=== PATIENT | female | born 1985 | race Caucasian/White ===

== ENCOUNTER 2022-05-24 06:56 | Inpatient (IN) ==
[2022-05-24] MEDS ORDERED: miSOPROStol 100 mcg TAB PO ONE (09:14)
[2022-05-24] MEDS ORDERED: Lactated Ringers 1000 ml BAG 1,000 ML IV ONE (09:14)
[2022-05-24] MEDS ORDERED: Buffered Lidocaine 1% SYRIN 1 ml INTRADERM ONE (09:14)
[2022-05-24] MEDS ORDERED: Lactated Ringers 1000 ml BAG 1,000 ML IV SCH ×2 (10:00→14:00)
[2022-05-24 11:35] LABS: Urine Benzodiazepine Screen None Detected (None Detect); Urine Cannabinoids Screen None Detected (None Detect); Urine Opiates Screen None Detected (None Detect)
[2022-05-24] MEDS ORDERED: Measles, Mumps,Rubella VACC 0.5 ML/VIAL SUBCUT ONE (13:38)
[2022-05-24] MEDS ORDERED: Witch Hazel PAD JAR TOPICAL PRN (13:38)
[2022-05-24] MEDS ORDERED: Dibucaine 1% OINT 28.35 GM TUBE PR PRN (13:38)
[2022-05-24] MEDS ORDERED: Glycerin ADULT 2.4 gm SUPP PR PRN (13:38)
[2022-05-24] MEDS ORDERED: RHO D Immune Globulin (HUMAN) 300 MCG = 1,500 I.U. INJ IM PRN (13:38)
[2022-05-25 06:03] LABS: ABS Eosinophils 0.3 10^3/ul (0-0.6); ABS Lymphocytes 2.9 10^3/ul (1.0-4.8); ABS Monocytes 1.3 10^3/ul (0-0.8); ABS Neutrophils 12.5 10^3/ul (1.5-7.7); Eosinophil % 1.9 %; Hematocrit 34 % (35-47); Hemoglobin 11.4 g/dL (12.0-16.0); Lymphocyte % 17.2 %; Mean Corpuscular HGB Conc 34 g/dL (31-36); Mean Corpuscular Hemoglobin 30 pg (27-31); Mean Corpuscular Volume 89 fL (80-97); Mean Platelet Volume 8.1 fL (7.4-10.4); Nucleated Red Blood Cells % 0.1; Platelet Count 226 10^3/uL (150-450); Red Blood Count 3.78 10^6 /uL (3.70-4.87); Red Cell Distribution Width 13 % (10-15); White Blood Count 17.1 10^3/uL (3.5-10.8)
[2022-05-25] MEDS ORDERED: Measles, Mumps,Rubella VACC 0.5 ML/VIAL SUBCUT ONE (17:00)
[2022-05-26 08:08] VITALS: BP 103/61
== END 2022-05-26 12:38 | disposition home or self-care (01) | DRG 807 ==
LOC: MCHOBOUT 06:56 → MCHOB 09:16
PROVIDERS: ADMIT Midwife; ATTEND Midwife